=== PATIENT | male | born 1965 | race Caucasian/White ===

== ENCOUNTER 2024-11-06 12:40 | Emergency (ER) | payer SELFPAY ==
[~2024-11-06] VITALS: Ht 167.6 cm; Wt 80.7 kg
[2024-11-06 13:16] LABS: *BLOOD, URINE 1+ (NEGATIVE); *CLARITY,URINE CLEAR (CLEAR); *COLOR,URINE YELLOW (YELLOW); *KETONES,URINE TRACE (NEGATIVE); *PROTEIN,URINE NEGATIVE (NEGATIVE); *UROBILINOGEN,URINE 0.2 E.U./dl (NORMAL); LEUKOCYTE ESTERASE ,URINE NEGATIVE (NEGATIVE); NITRITE, URINE NEGATIVE (NEGATIVE); UGLUCOSE NEGATIVE (NEGATIVE)
[2024-11-06 13:18] LABS: *BILIRUBIN,URIN 1+ (NEGATIVE)
[2024-11-06 13:29] LABS: SQUAMOUS EPITHELIAL CELL,UR FEW /HPF (NONE SEEN)
[2024-11-06 14:17] LABS: PLATELET COUNT (AUTO) 244 K/uL (152-348); RED BLOOD CELL COUNT(AUTO) 4.57 MIL/uL (4.06-5.63); RED CELL DISTRIBUTION WIDTH 13.7 % (12.1-16.2); WHITE BLOOD COUNT (AUTO) 5.8 K/uL (3.6-10.2)
[2024-11-06 14:23] LABS: CREATININE 0.7 mg/dL (0.6-1.3); SODIUM SERUM 144.0 mmol/L (136-145); UREA NITROGEN, BLOOD 18.0 mg/dL (7-18)
[2024-11-06 14:28] LABS: ASPARTATE AMINOTRANSFERASE 16.0 U/L (15-37); TOTAL PROTEIN, SERUM 6.6 g/dL (6.4-8.2)
[2024-11-06] MEDS: IV NS 1000 ML 1,000 ML IV ONE (15:05)
[2024-11-06] MEDS ORDERED: IV NORMAL SALINE 250 ML IV ONE (16:02)
[2024-11-06] MEDS ORDERED: IOHEXOL 300MG/ML 100 ML INFUS..BTL ONE (16:02)
[2024-11-06] MEDS ORDERED: SWABABLE VALVE TRANSFER SET EA MC ONE (16:02)
[2024-11-06] MEDS ORDERED: LEVO500T90 PO (17:41)
[2024-11-06] MEDS ORDERED: LORAZEPAM 2 MG/1 ML VIAL IV ONE (17:45)
[2024-11-06 17:51] VITALS: BP 127/83; TEMP 98.7; O2SAT 99
[2024-11-07 22:32] LABS: FREE PSA 27.22 ng/mL (0.00-45)
== END 2024-11-06 17:45 | disposition home or self-care (01) ==
LOC: ER 12:40
DX: N45.1 Epididymitis (principal); F17.200 Nicotine dependence, unspecified, uncomplicated
CPT/HCPCS: 99285; 74177; 96360; 96361; 80053; 81001; 85025; 84153; 36415; 76870; Q9967; J7040; A4606; A4663